=== PATIENT | male | born 1950 | race Caucasian/White ===

== ENCOUNTER 2024-10-17 12:08 | Emergency (ER) | payer MEDICARE, BC ==
[~2024-10-17 12:08] MED LIST: Iopamidol 370 76% 100 ML VIAL ONE
[2024-10-17 12:42] LABS: #Basophils 0.2 thou/uL (0.0-0.2); #Eosinophils 0.1 thou/uL (0.0-0.7); #Lymphocytes 2.0 thou/uL (1.20-3.40); #Monocytes 0.8 thou/uL (0.11-0.59); #Neutrophils 9.1 thou/uL (1.40-6.50); %Basophils 1.5 % (0.0-1.0); %Eosinophils 1.2 % (0.0-10.0); %Lymphocytes 16.2 % (21.0-51.0); %Monocytes 6.5 % (0.0-10.0); %Neutrophils 74.7 % (42.0-75.0); Hematocrit 35.6 % (42.0-52.0); Hemoglobin 12.8 g/dL (14.0-18.0); Mean Corpuscular Hemoglobin 30.1 pg (27.0-31.0); Mean Corpuscular Volume 83.8 fl (78.0-98.0); Platelet Count 478 10x3/uL (130-400); Red Blood Cell (RBC) Count 4.26 mill/uL (4.70-6.10); White Blood Cell (WBC) Count 12.2 10x3/uL (4.8-10.8)
[2024-10-17 12:56] LABS: ALT (SGPT) 28 U/L (Less than 45); AST (SGOT) 38 U/L (11-34); Albumin 3.4 g/dL (3.1-4.5); Alkaline Phosphatase 81 U/L (40-110); Anion Gap 17 mmol/L (10-20); BUN (Urea Nitrogen) 23 mg/dL (8.4-25.7); Bilirubin, Total 0.9 mg/dL (0.3-1.2); Calc. Creatinine Clearance 0 mL/min (70-130); Calcium 9.3 mg/dL (7.8-10.44); Carbon Dioxide 24 mmol/L (23-31); Chloride 85 mmol/L (98-107); Globulin 3.4 g/dL (2.4-3.5); Glucose 126 mg/dL (83-110); Lipase 9 U/L (8-78); Potassium 3.5 mmol/L (3.5-5.1); Sodium 122 mmol/L (136-145)
[2024-10-17 12:58] LABS: Troponin I Less than 0.010 ng/mL (< 0.028)
[2024-10-17] MEDS ORDERED: Mineral Oil ENEMA ONE (14:42)
[2024-10-17] MEDS ORDERED: Glycerin Adult Supp. (12 ct jar) ONE ×2 (16:08→17:16)
[2024-10-17 17:21] LABS: Glucose, Urine (Dipstick) 100 mg/dL (Negative); Leukocyte Negative (Negative); Protein, Urine (Dipstick) Trace mg/dL (Neg-Trace); Specific Gravity, Urine 1.015 (1.005-1.030)
[2024-10-17 17:29] LABS: CAUTI Indications for Culture Pelvic or flank pain; RBC/HPF 0-3 HPF (0-3); WBC/HPF 0-3 HPF (0-3)
[2024-10-17 17:30] LABS: Bacteria/HPF Rare-Few HPF (None Seen); Mucous/LPF Few LPF (<2+)
[2024-10-17 17:31] LABS: Urine Culture Reflex No No
== END 2024-10-17 17:28 | disposition short-term general hospital (02) ==
LOC: BURERS 12:08
DX: K56.7 Ileus, unspecified (principal); E87.1 Hypo-osmolality and hyponatremia; I10 Essential (primary) hypertension; Z87.891 Personal history of nicotine dependence; Z79.899 Other long term (current) drug therapy
CPT/HCPCS: 36415; 71275; 74177; 80053; 81001; 83605; 83690; 83880; 84484; 85025; 87040; 93005; 96365; 96367; J2543; J3373; Q9967

== ENCOUNTER 2024-10-29 10:17 | Outpatient (CLI) | payer OTHER ==
[2024-10-29 10:54] LABS: Anion Gap 18 mmol/L (10-20); BUN (Urea Nitrogen) 20 mg/dL (8.4-25.7); Calc. Creatinine Clearance 0 mL/min (70-130); Calcium 9.3 mg/dL (7.8-10.44); Carbon Dioxide 23 mmol/L (23-31); Chloride 94 mmol/L (98-107); Glucose 118 mg/dL (83-110); Potassium 3.7 mmol/L (3.5-5.1); Sodium 131 mmol/L (136-145)
== END 2024-10-29 10:18 | disposition home or self-care (01) ==
LOC: BURLAB 10:17
PROVIDERS: ATTEND Pathology Anatomic Pathology & Clinical Pathology
DX: Z00.00 Encounter for general adult medical examination without abnormal findings (principal)
CPT/HCPCS: 36415; 80048